=== PATIENT | male | born 1965 | race Caucasian/White ===

== ENCOUNTER 2018-02-18 10:50 | Inpatient (IN) | payer BC ==
[2018-02-18] MEDS ORDERED: ACETAMINOPHEN 500 MG TAB PO ONE (11:36)
[2018-02-18] MEDS ORDERED: LR 1,000 ML IV ONE (11:36)
[2018-02-18] MEDS ORDERED: morphINE SR 15 MG TAB PO ONE (11:36)
[2018-02-18] MEDS ORDERED: morphINE PF 0.2 MG in SYRINGE INTRATHECAL 1 SYR IT ONE (11:36)
[2018-02-18] MEDS ORDERED: GABAPENTIN 300 MG CAP PO ONE (11:36)
[2018-02-18] MEDS ORDERED: ceFAZolin 2 GM/DEXTROSE 100 ML IV ONE (11:36)
[2018-02-18] MEDS ORDERED: LIDOCAINE 1% 2 ML INJ ID PRN (11:36)
[2018-02-18] MEDS ORDERED: CHLORHEXIDINE GLUC HIBICLENS 118 ML BTL TP ONE (12:47)
[2018-02-18] MEDS ORDERED: BUPIVACAINE 0.25% 30 ML SDV ONE (12:47)
[2018-02-18] MEDS ORDERED: THROMBIN (BOVINE) 20,000 UNIT VIAL TP ONE (12:47)
[2018-02-18] MEDS ORDERED: EPINEPHrine 1 MG/ML INJ ONE (12:48)
[2018-02-18] MEDS ORDERED: BACITRACIN 50,000 UNITS/10 ML SYR IRR ONE (12:49)
--- NOTE | 2018-02-18 12:53 | PDHPUP ---
History & Physical Update H&P update statement: This history and physical update is based on an assessment of the patient which was completed after admission or registration (within 24 hours), but prior to the surgery/procedure. H&P update: H&P reviewed & patient examined, no change in patient's condition since H&P completed (Consents signed and site marked. All questions answered.)
[2018-02-18] MEDS ORDERED: DEXAMETHASONE 4 MG/ML VIAL IVP PRN (13:06)
[2018-02-18] MEDS ORDERED: NALOXONE HCL 0.4 MG/ML INJ IVP PRN (13:06)
[2018-02-18] MEDS ORDERED: ONDANSETRON 4 MG/2 ML VIAL IVP PRN ×2 (13:06→15:22)
[2018-02-18] MEDS ORDERED: ALBUTEROL 3 ML DEYVIAL IH PRN (13:06)
[2018-02-18] MEDS ORDERED: oxyCODONE IR 5 MG TAB PO PRN ×2 (13:06→15:22)
--- NOTE | 2018-02-18 13:07 | PDANEPAE ---
ANE History of Present Illness L5-S1 TLIF ANE Past Medical History - Cardiovascular History Hx Hypertension: No Hx Arrhythmias: No Hx Chest Pain: No Hx Coronary Artery / Peripheral Vascular Disease: No Hx CHF / Valvular Disease: No Hx Palpitations: No - Pulmonary History Hx COPD: No Hx Asthma/Reactive Airway Disease: No Hx Recent Upper Respiratory Infection: No Hx Oxygen in Use at Home: No Hx Sleep Apnea: No Sleep Apnea Screening Result - Last Documented: Positive - Neurologic History Hx Cerebrovascular Accident: No Hx Seizures: No Hx Dementia: No - Endocrine History Hx Diabetes: No - Renal History Hx Renal Disorders: No - Liver History Hx Hepatic Disorders: No - Neurological & Psychiatric Hx Hx Neurological and Psychiatric Disorders: No - Cancer History Hx Cancer: No - Congenital Disorder History Hx Congenital Disorders: No - GI History Hx Gastrointestinal Disorders: No - Other Health History Other Health History: SPONDYLOSIS. FX SACRUM 2012 - Chronic Pain History Chronic Pain: Yes (LOWER LUMBAR) - Surgical History Prior Surgeries: BABS SHLDR RTC/LABRUM. LT ANKLE RECONSTRUCTION ANE Review of Systems Review of Systems: - Exercise capacity METS (RN): 4 METS ANE Patient History - Allergies Allergies/Adverse Reactions: No Known Allergies Allergy (Verified 02/18/18 11:54) - Home Medications Home Medications: NK [No Known Home Meds] 02/12/18 [Last Taken Unknown] - NPO status NPO Since - Liquids (Date): 02/18/18 NPO Since - Liquids (Time): 09:45 NPO Since - Solids (Date): 02/17/18 NPO Since - Solids (Time): 19:00 - Smoking Hx Smoking Status: Never smoked ANE Labs/Vital Signs - Vital Signs Blood Pressure: 112/75 Heart Rate: 62 Respiratory Rate: 16 O2 Sat (%): 94 Height: 187.96 cm Weight: 108.862 kg ANE Physical Exam - Airway Neck exam: FROM Mallampati Score: Class 2 - Pulmonary Pulmonary: clear to auscultation - Cardiovascular Cardiovascular: regular rate and rhythym - ASA Status ASA Status: II ANE Anesthesia Plan Anesthesia Plan: general endotracheal anesthesia Total IV Anesthesia: Yes
[2018-02-18] MEDS ORDERED: fentaNYL 100 MCG/2 ML INJ ONE ×3 (13:31→17:43)
[2018-02-18] MEDS ORDERED: PROPOFOL 200 MG/20 ML VIAL ONE (13:31)
[2018-02-18] MEDS ORDERED: ROCURONIUM 50 MG/5 ML VIAL ONE (13:36)
[2018-02-18] MEDS ORDERED: PROPOFOL/EMULSION 500 MG/50 ML BOTTLE IV ONE ×3 (13:36)
[2018-02-18] MEDS ORDERED: REMIFENTANIL HCL 1 MG VIAL ONE ×2 (13:38→13:39)
[2018-02-18] MEDS ORDERED: DEXAMETHASONE 4 MG/ML VIAL ONE (14:15)
[2018-02-18] MEDS ORDERED: ONDANSETRON 4 MG/2 ML VIAL ONE (14:15)
[2018-02-18] MEDS ORDERED: ONDANSETRON DISINTEGRATING 4 MG TAB PO PRN (15:22)
[2018-02-18] MEDS ORDERED: METHOCARBAMOL 750 MG TAB PO PRN (15:22)
[2018-02-18] MEDS ORDERED: BISACODYL 10 MG SUPP PR PRN (15:22)
[2018-02-18] MEDS ORDERED: POLYETHYLENE GLYCOL 3350 17 GM PKT PO PRN (15:22)
[2018-02-18] MEDS ORDERED: diphenhydrAMINE 25 MG CAP PO PRN (15:22)
[2018-02-18] MEDS ORDERED: LACTULOSE 20 GM/30 ML UDCUP PO PRN (15:22)
[2018-02-18] MEDS ORDERED: MAGNESIUM HYDROXIDE 30 ML UDCUP PO PRN (15:22)
--- NOTE | 2018-02-18 15:28 | POSTOPPROG ---
Post Op Note Date of Operation: 02/18/18 Surgeon: Jose Saldana Process Laboratory Specialist: GLO Castillo Anesthesia: GET(General Endotracheal) Pre-op Diagnosis: lumbar stenosis Post-op Diagnosis: lumbar stenosis Indication: lumbar stenosis Procedure: L5/S1 TLIF Inf/Abcess present in the surg proc area at time of surgery?: No EBL: 50-100 Drains: Gordon LLOYD Addendum - Addendum .: S: low back pain O: NAD A&OX3 MAEX4 5/ = BUE and BLE A/P 52F s/p L5-S1 TLIF and PSF -Opmtize pain management -Advance diet as tolerated -PT/OT -JPX1 -Post op xrays pending -DVT prophx: TEDs, SCDs, Lovenox okay POD1 -Please notify NS with any change in neuro/motor exam -Discussed with Dr. Saldana
[2018-02-18] MEDS ORDERED: NS 1,000 ML IV SCH (15:30)
[2018-02-18] MEDS ORDERED: DIAZEPAM 5 MG/ML 1 ML SYR ONE (17:06)
[2018-02-18] MEDS: fentaNYL 100 MCG/2 ML INJ IVP PRN ×3 (17:07→17:43)
[2018-02-18] MEDS: DIAZEPAM 5 MG/ML 1 ML SYR IVP PRN ×2 (17:16→17:26)
[2018-02-18] MEDS: HYDROmorphONE/DILAUDID 1 MG/ML INJ IVP PRN ×2 (17:27→17:55)
[2018-02-18] MEDS ORDERED: HYDROmorphONE/DILAUDID 1 MG/ML INJ ONE (17:27)
--- NOTE | 2018-02-18 17:39 | PDMN ---
Medical Necessity Medical necessity: Pt meets inpt criteria per MD order and [facility] [facility] Lumbar Fusion, inpt only surgery, 3 days. Est LOS>2MN, s/p L5/S1 TLIF surgery for lumbar stenosis, inpt post-op care med nec.
--- NOTE | 2018-02-18 18:12 | GOP ---
[f rep st] OPERATIVE REPORT DATE OF OPERATION: 02/18/2018 SURGEON: Jose Saldana MD EVALUATION ADVISOR: GLO Singletary. ANESTHESIA: General. PREOPERATIVE DIAGNOSIS: 1. L5-S1 spondylosis with lateral recess and left foraminal stenosis. 2. Low back pain with lower extremity radiculopathy. 3. Treatment refractory to nonoperative intervention. POSTOPERATIVE DIAGNOSIS: 1. L5-S1 spondylosis with lateral recess and left foraminal stenosis. 2. Low back pain with lower extremity radiculopathy. 3. Treatment refractory to nonoperative intervention. PROCEDURE PERFORMED: 1. Posterior arthrodesis with approach to L5-S1. 2. Posterolateral fusion with bilateral pedicle screw placement at L5 and S1 from the Fitly 4.75 system. 3. Decompressive laminectomy, L5-S1 with left-sided L5-S1 transforaminal lumbar interbody fusion with a 7 x 20 mm titanium PEEK Elevate cage filled with morselized autograft and allograft. 4. Posterolateral fusion on the right between L5 and S1 with morselized autograft and allograft. 5. Use of intraoperative 3D Stealth navigation. 6. Use of intraoperative fluoroscopy, less than 1 hour physician time. 7. Use of neuromonitoring. 8. Use of the operating microscope. 9. Injection of preservative-free intrathecal narcotics. FINDINGS: per imaging SPECIMENS: None. ESTIMATED BLOOD LOSS: 100 mL. INDICATIONS: The patient is a 52-year-old gentleman who unfortunately is suffering from a longstanding history of low back pain with left lower extremity radiculopathy. Imaging studies demonstrated spondylosis L5-S1. The patient failed nonoperative intervention. After discussion of the risks, benefits, and alternatives after failing nonoperative intervention, we decided to proceed forth with surgery as described above. DESCRIPTION OF PROCEDURE: The patient was brought to the operating theater and underwent general endotracheal anesthesia without complications. He had Venodynes, ADELAIDA hose, and appropriate lines placed by Anesthesia. He was flipped prone onto the Gordon table. All bony processes inspected and padded. The lower lumbar region was prepped and draped in the usual sterile surgical fashion. A time-out was completed per protocol. The patient received antibiotics within 1 hour of incision. Using lateral fluoroscopy and a spinal needle, we picked our entry point to the L5-S1 level. This was marked in the midline and the incision then infiltrated with Marcaine with epinephrine. The incision was taken down with the scalpel blade, and using monopolar taken down in the midline through the lumbodorsal fascia. A subperiosteal dissection was carried to the transverse processes of L5 and S1. Care was taken to preserve the bilateral L4-5 facet joints. Deep retractors were placed to maintain our exposure. We confirmed our level using lateral fluoroscopy. We attached the 3D Stealth navigation clamp to the spinous process of L5, and completed a 3D Stealth navigation spin. Using 3D navigation we then placed the gliding pilot instructor holes for the bilateral pedicle screws in L5 and S1. All holes were manually palpated with no evidence of any cortical breaches. We then tapped and placed 6.5 x 45 mm screw on the left at L5 and S1 and 6.5 x 50 mm screw on the right side a L5 and S1, all from [employer] Youra 4.75 system. Another 3D Stealth navigation spin demonstrated good placement of the hardware. At this point, the microscope was brought into the field to assist with microscopic dissection and to maintain illumination and magnification. Using a combination of the bur tip on the drill bit, Kerrison punches, and Leksell rongeur we completed a decompressive laminectomy at L5-S1. We completed aggressive facetectomy on the left side at L5-S1 and distracted the interspace. We completed a left-sided L5-S1 diskectomy and prepared the cartilaginous endplates. We measured the interbody space and placed a 7 x 20 mm titanium PEEK Elevate cage filled with morselized autograft and allograft anteriorly and toward the midline. We packed additional morcellized autograft in the disk space for the interbody fusion. We let down the distraction and decorticated the bone on the right side between L5 and S1. We placed 2 lordotic rods into the heads of the screws between L5 and S1 and secured them down with cap screws , which were then tightened per the school commissioner's setting. We injected preservative-free intrathecal narcotics. We placed morselized autograft and allograft on the right between L5-S1 for the posterolateral fusion. A drain was left in the subfascial space. The wound then closed in multiple layers including Vicryl sutures for the deep layers and Dermabond for the skin. The patient's wounds were dressed sterilely. He was then flipped supine onto the transfer cart, where he was awakened, extubated, to recovery room in stable condition. No complications and no noted changes on neuromonitoring throughout the procedure. COMPLICATIONS: None. /[id number]/MODL MTDD
--- NOTE | 2018-02-18 18:30 | POSTANESTH ---
Post Anesthetic Evaluation Cardiovascular Status: Normal, Stable Respiratory Status: Normal, Stable Level of Consciousness/Mental Status: Can Participate in Eval, Alert and Oriented Pain Control: Adequate, Prn Tx Ordered Nausea/Vomiting Control: Adequate, Prn Tx Ordered Complications Possibly Related to Anesthesia: None Noted
[2018-02-18] MEDS: ceFAZolin 2 GM/DEXTROSE 100 ML IV SCH (23:00)
[2018-02-18] MEDS: ACETAMINOPHEN 500 MG TAB PO SCH (23:00)
[2018-02-18] MEDS: SENNOSIDES/DOCUSATE SODIUM TAB PO SCH (23:01)
[2018-02-18] MEDS: FAMOTIDINE 20 MG TAB PO SCH (23:01)
[2018-02-19] MEDS: ceFAZolin 2 GM/DEXTROSE 100 ML IV SCH (06:02)
--- NOTE | 2018-02-19 07:29 | SOAPPROG ---
SOAP Progress Note Assessment/Plan: Assessment: 52 yo male sp L5/S1 TLIF severe post op nausea with emesis x 4 does not tolerate Zofran hearing impaired Plan: add scopalomine patch for nausea PT/OT as tolerated today lumbar xrays when OOB xrays when he can tolerate Continue KATE drain 02/19/18 07:26 Subjective: asleep, wakes easily and complains of nausea denies numbness, tingling or weakness Objective: Vital Signs Temp Pulse Resp BP Pulse Ox 36.6 C 62 16 99/64 L 92 02/19/18 04:00 02/19/18 04:00 02/19/18 04:00 02/19/18 04:00 02/19/18 04:00 02/18/18 02/19/18 02/20/18 05:59 05:59 05:59 Intake Total 1550 Output Total 1345 Balance 205 Neuro: A+Ox4 follows commands x 4 sens +LT throughout KATE: 170ml ICD10 Worksheet Patient Problems: Problems Problem Status Onset Lumbar degenerative disc disease Acute Lumbar degenerative disc disease Acute - ICD10 Problem Qualifiers (1) Lumbar degenerative disc disease (2) Lumbar degenerative disc disease
[2018-02-19] MEDS: ACETAMINOPHEN 500 MG TAB PO SCH ×3 (07:34→22:36)
[2018-02-19] MEDS: FAMOTIDINE 20 MG TAB PO SCH ×2 (10:08→21:33)
[2018-02-19] MEDS: SCOPOLAMINE HYDROBROMIDE 1 MG/3 DAYS PATCH TD SCH ×2 (10:08→21:33)
[2018-02-19] MEDS: SENNOSIDES/DOCUSATE SODIUM TAB PO SCH ×2 (10:09→21:33)
[2018-02-19] MEDS ORDERED: PROMETHAZINE HCL 25 MG/ML INJ IVP PRN (12:31)
--- NOTE | 2018-02-19 14:08 | ASMTCMCOM ---
CM Note CM Note Notes: Pt's chart reviewed for discharge planning. Pt is a 52 y/o male presented to the hospital for surgery due to severe low back pain and left lower extremity radiculopathy. He underwent a L5/S1 TLIF Lum Hilton Fusion w/stealth neuro monitoring. Pt works at [employer]. He lives at home, independently, with his Brandi #[phone]. PT/OT evals have been ordered. CM will follow. D/C Plan: TBD Date Signed: 02/19/2018 02:07 PM Electronically Signed By:Salma Swenson
[2018-02-19] MEDS ORDERED: NS 1,000 ML IV SCH (16:30)
[2018-02-19] MEDS: ENOXAPARIN 40 MG/0.4 ML SYR SC SCH (17:57)
[2018-02-19] MEDS ORDERED: NS 500 ML IV ONE (19:00)
[2018-02-19] MEDS: traMADol 50 MG TAB PO PRN (22:36)
[2018-02-19] MEDS: METHOCARBAMOL 750 MG TAB PO SCH (23:18)
[2018-02-20] MEDS: traMADol 50 MG TAB PO PRN ×5 (04:21→23:28)
[2018-02-20] MEDS: ACETAMINOPHEN 500 MG TAB PO SCH ×3 (04:36→21:16)
[2018-02-20] MEDS: METHOCARBAMOL 750 MG TAB PO SCH ×4 (05:31→23:27)
--- NOTE | 2018-02-20 08:33 | SOAPPROG ---
SOAP Progress Note Assessment/Plan: Assessment: 52 yo male sp L5/S1 TLIF POD #2 - increased pain today with improved nausea Plan: - will plan to dc TASHA today - change dressing - encouraged oral pain medications and muscle relaxants - PT/OT as tolerated today - lumbar xrays today when he can tolerate 02/20/18 08:32 Subjective: increase back pain; no new leg symptoms Objective: Vital Signs Temp Pulse Resp BP Pulse Ox 36.8 C 70 16 93/61 L 93 02/20/18 04:00 02/20/18 04:00 02/20/18 04:00 02/20/18 04:00 02/20/18 04:00 02/19/18 02/20/18 02/21/18 05:59 05:59 05:59 Intake Total 1550 2200 Output Total 1345 1435 Balance 205 765 Neuro: A+Ox4 follows commands x 4 sens +LT throughout tasha with serosanguinous drainage dressing C/D/I ICD10 Worksheet Patient Problems: Problems Problem Status Onset Lumbar degenerative disc disease Acute Lumbar degenerative disc disease Acute
[2018-02-20] MEDS ORDERED: CYCLOBENZAPRINE 10 MG TAB PO PRN (08:39)
[2018-02-20] MEDS: SENNOSIDES/DOCUSATE SODIUM TAB PO SCH ×2 (09:23→21:15)
[2018-02-20] MEDS: FAMOTIDINE 20 MG TAB PO SCH ×2 (09:23→21:16)
[2018-02-20] MEDS: ENOXAPARIN 40 MG/0.4 ML SYR SC SCH (09:23)
[2018-02-21] MEDS: METHOCARBAMOL 750 MG TAB PO SCH ×2 (05:14→13:22)
[2018-02-21] MEDS: ACETAMINOPHEN 500 MG TAB PO SCH ×2 (05:17→12:47)
--- NOTE | 2018-02-21 07:11 | SOAPPROG ---
SOAP Progress Note Assessment/Plan: Assessment: 52 yo male sp L5/S1 TLIF POD #3 - feels that his pain is controlled and doing better and no new nausea Plan: - lumbar spine xrays reviewed and show excellent hardware placement - change dressing - continue to encourage oral pain medications and muscle relaxants - PT/OT as tolerated today - d/c home 02/21/18 07:10 Subjective: feels like he was moving better yesterday with his pain, which is still present ; no new complaints; interested in going home today Objective: Vital Signs Temp Pulse Resp BP Pulse Ox 36.8 C 58 L 16 108/69 92 02/21/18 04:00 02/21/18 04:00 02/21/18 04:00 02/21/18 04:00 02/21/18 04:00 02/20/18 02/21/18 02/22/18 05:59 05:59 05:59 Intake Total 2200 700 Output Total 1435 430 Balance 765 270 Neuro: A+Ox4 follows commands x 4 sens +LT throughout dressing C/D/I ICD10 Worksheet Patient Problems: Problems Problem Status Onset Lumbar degenerative disc disease Acute Lumbar degenerative disc disease Acute
[2018-02-21] MEDS: SENNOSIDES/DOCUSATE SODIUM TAB PO SCH (09:34)
[2018-02-21] MEDS: ENOXAPARIN 40 MG/0.4 ML SYR SC SCH (09:35)
[2018-02-21] MEDS: FAMOTIDINE 20 MG TAB PO SCH (09:35)
[2018-02-21] MEDS: traMADol 50 MG TAB PO PRN ×2 (09:35→14:16)
[2018-02-21 13:05] VITALS: BP 119/84
--- NOTE | 2018-02-21 13:56 | ASDISCHSUM ---
Discharge Information Plan Status:Home with No Needs Medically Cleared to Leave:02/21/2018 Discharge Date:02/21/2018 CM D/C Disposition:Home, Routine, Self-Care ADT D/C Disposition:Home, Routine, Self-Care Projected Discharge Date:02/21/2018 02:00 PM Transportation at D/C:Friend Discharge Delay Reason: Follow-Up Date:02/21/2018 02:00 PM Discharge Slot: Final Diagnosis:Spondylosis Placement Information Patient Contact Information Contact Name:HUBER Relationship: Address: Work Phone: City: [facility] Phone: State/[place] Code: Email: Financial Information Financial Class:BCOP Primary Plan Desc: OUT [facility] Primary Plan Number:[id number] Secondary Plan Desc: Secondary Plan Number: Assessment Information LACE LACE Length of stay for Answers: 3 days current admission Acuity / Level of Answers: Yes Care: Did the patient have an inpatient admission? Comorbidities - select Answers: Opioid dependence all that apply / Chronic pain # of Emergency department Answers: 0 visits in the last 6 months Score: 10 Date Signed: 02/21/2018 01:55 PM Electronically Signed By:Georgina Ramirez LCSW [facility] CM Progress Note CM Note CM Note Notes: Pt's chart reviewed for discharge planning. Pt is a 52 y/o male presented to the hospital for surgery due to severe low back pain and left lower extremity radiculopathy. He underwent a L5/S1 TLIF Lum Hilton Fusion w/stealth neuro monitoring. Pt works at [employer]. He lives at home, independently, with his Brandi #[phone]. PT/OT evals have been ordered. CM will follow. D/C Plan: TBD Date Signed: 02/19/2018 02:07 PM Electronically Signed By:Salma Swenson Case Management Discharge Plan Note Case Management Discharge Discharge Order Complete? Answers: Yes Patient to Obtain Answers: Independently Medications Transportation Arranged Answers: Family/Friends Transport will Pick (Date 02/21/2018 02:00 PM & Time) Discharge Comments Notes: Patient has been discharged home. No needs per therapies. Date Signed: 02/21/2018 01:55 PM Electronically Signed By:Georgina Ramirez LCSW Intervention Information
== END 2018-02-21 14:52 | disposition home or self-care (01) | DRG 455 ==
LOC: F3N 11:12
PROVIDERS: ADMIT Neurological Surgery; ATTEND Neurological Surgery
PROC: 0SG3071 Fusion of Lumbosacral Joint with Autologous Tissue Substitute, Posterior Approach, Posterior Column, Open Approach (ICD-10-PCS; principal; 2018-02-18 13:15)
PROC: 0SG30AJ Fusion of Lumbosacral Joint with Interbody Fusion Device, Posterior Approach, Anterior Column, Open Approach (ICD-10-PCS; principal; 2018-02-18 13:15)
PROC: 4A1004G Monitoring of Central Nervous Electrical Activity, Intraoperative, Open Approach (ICD-10-PCS; principal; 2018-02-18 13:15)
PROC: 8E0WXBZ Computer Assisted Procedure of Trunk Region (ICD-10-PCS; principal; 2018-02-18 13:15)
PROC: 00NY0ZZ Release Lumbar Spinal Cord, Open Approach (ICD-10-PCS; principal; 2018-02-18 13:15)
DX: M48.061 Spinal stenosis, lumbar region without neurogenic claudication (principal); M47.27 Other spondylosis with radiculopathy, lumbosacral region; G47.30 Sleep apnea, unspecified
CPT/HCPCS: 97116-GP; 97161-GP; 97166-GO; 97530-GP; 97535-GO; C1713; J0171; J0690; J1100; J1170; J1650; J2274; J2405; J2550; J2704; J3010; J3360